=== PATIENT | male | born 1955 | race Caucasian/White ===

== ENCOUNTER 2018-08-24 09:10 | Outpatient (CLI) | payer MEDICARE ==
--- NOTE | 2018-08-24 11:54 | MRI ---
MRI RIGHT SHOULDER WITHOUT CONTRAST: HISTORY: M25.511, right shoulder pain. Prior rotator cuff repair. COMPARISON: None. FINDINGS: BICEPS TENDON: There is an interstitial delamination type tear of the intraarticular biceps tendon. The extraarticular biceps tendon is normal. LABRUM: There is degenerative type fraying of the superior labrum. ROTATOR CUFF: Prior rotator cuff repair. The construct or the supraspinatus is intact with high-gra de tearing at the footprint of the infraspinatus. There is wavy scar and granulation tissue with a 1 .5 cm gap, with only a very small sliver of bursal surface tendon remaining, for a width of 5 mm. MUSCLES: Muscle signal and bulk are normal. 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 Type II acromion. SOFT TISSUES: Moderate subacromial, subdeltoid bursal effusion. IMPRESSION: 1. Interstitial type intraarticular biceps tendon tear. 2. Mild degenerative fraying of the superior and anterior labrum. 3. High-grade near complete tear of the footprint of the anterior fibers of the infraspinatus tendon , posterior to the construct, with a 1.5 cm gap and a small sliver of either scar or granulation tiss ue, most likely intact tendon remaining over the bursal surface. This extends for an anterior-caser in ior width of 5 mm. POS: [facility]
== END 2018-08-24 09:11 | disposition home or self-care (01) ==
LOC: TBSIIMAG 09:10
PROVIDERS: ATTEND Orthopaedic Surgery
DX: M25.511 Pain in right shoulder (principal); S46.911A Strain of unspecified muscle, fascia and tendon at shoulder and upper arm level, right arm, initial encounter; S46.211A Strain of muscle, fascia and tendon of other parts of biceps, right arm, initial encounter; M19.011 Primary osteoarthritis, right shoulder

== ENCOUNTER 2018-09-05 06:39 | Outpatient (CLI) | payer MEDICARE ==
--- NOTE | 2018-09-05 17:23 | EKG ---
Test Reason : Blood Pressure : / mmHG Vent. Rate : 056 BPM Atrial Rate : 056 BPM P-R Int : 162 ms QRS Dur : 090 ms QT Int : 404 ms P-R-T Axes : 036 056 054 degrees QTc Int : 389 ms Sinus bradycardia Anterior infarct , age undetermined Abnormal ECG Confirmed by DR. Moo THURSTON ([id number]) on 09/05/2018 5:22:53 PM Referred By: TRISTAN Confirmed By:DR. Moo THURSTON
== END 2018-09-05 06:40 | disposition home or self-care (01) ==
LOC: LABBT 06:39
PROVIDERS: ATTEND Orthopaedic Surgery
DX: Z01.810 Encounter for preprocedural cardiovascular examination (principal); M75.101 Unspecified rotator cuff tear or rupture of right shoulder, not specified as traumatic
CPT/HCPCS: 93005; 93010

== ENCOUNTER 2018-09-15 05:58 | Day surgery (SDC) | payer MEDICARE ==
[2018-09-05 11:37] VITALS: BMI 41.3
[2018-09-15] MEDS ORDERED: Fentanyl 100 MCG/2 ML VIAL ONE (06:36)
[2018-09-15] MEDS ORDERED: Midazolam HCl 2 mg/2 ml Vial ONE (06:36)
[2018-09-15] MEDS ORDERED: Lidocaine 1% (PF) 30 ML VIAL ONE (06:37)
[2018-09-15] MEDS ORDERED: Clindamycin/D5W 600 mg/50 ml Premix Bag ONE (06:40)
[2018-09-15] MEDS ORDERED: Albuterol Sulfate 2.5 mg/3 ml Neb NEB SCH (07:30)
[2018-09-15] MEDS ORDERED: HYDROcodone/Acetaminophen 10/325 mg Tablet PO PRN ×2 (08:32)
[2018-09-15] MEDS ORDERED: Ondansetron PF 4 MG/2 ML Vial IVP PRN (08:32)
[2018-09-15] MEDS ORDERED: Ropivacaine 0.2% 550 ML 550 ML NERVE BLCK SCH (08:32)
[2018-09-15] MEDS ORDERED: traMADol HCl 50 MG TAB PO PRN ×2 (08:32)
[2018-09-15] MEDS ORDERED: Zolpidem Tartrate 5 MG TAB PO PRN (08:32)
[2018-09-15] MEDS ORDERED: Promethazine HCl 25 MG/ML VIAL IM PRN (08:32)
[2018-09-15] MEDS ORDERED: Fentanyl 100 MCG/2 ML VIAL SLOW IVP PRN (08:33)
[2018-09-15] MEDS ORDERED: Ropivacaine 0.5% HCl/PF (150 MG/30 ML VIAL) ONE (11:41)
[2018-09-15] MEDS ORDERED: Ropivacaine 0.2% HCl/PF (40 MG/20 ML VIAL) ONE (11:41)
[2018-09-15] MEDS ORDERED: Rocuronium Bromide 10 MG/ML (10ML VIAL) ONE (13:29)
[2018-09-15] MEDS ORDERED: Lidocaine 1% PF 5 ML VIAL ONE (13:29)
[2018-09-15] MEDS ORDERED: Glycopyrrolate 0.2 MG/ML 5 ML SYRINGE ONE (13:29)
[2018-09-15] MEDS ORDERED: PROPOFOL 200 MG/20 ML VIAL ONE (13:29)
--- NOTE | 2018-09-16 09:38 | OP ---
DATE OF PROCEDURE: 09/15/2018 PREOPERATIVE DIAGNOSES: Right rotator cuff tear, right biceps tendon split. POSTOPERATIVE DIAGNOSES: Right rotator cuff tear, right biceps tendon split. PROCEDURES PERFORMED: Right arthroscopic subacromial decompression, right arthroscopic biceps tenotomy and right arthroscopic rotator cuff repair. ANESTHESIA: General. ESTIMATED BLOOD LOSS: Minimal. SPECIMEN: None. DRAINS: None. COMPLICATIONS: None. DESCRIPTION OF PROCEDURE: The patient was taken to the operating room, where general anesthesia was induced. The patient was placed in left lateral decubitus position. Right arm was prepped and draped in usual sterile fashion. The scope was placed in the glenohumeral joint. He had an unstable biceps sling and split biceps tendon. I tagged the biceps tendon and transected the superior glenoid tubercle and debrided the surrounding labrum. The biceps tear, however, was very well fixed and did not retract. Scope was placed in the subacromial bursa and performed the bursectomy. CA ligament was taken down. I freshened up the rotator cuff tear. It was just behind rotator cuff tear that was repaired 12 years ago. I placed a single suture to the greater tuberosity. Sutures were passed through the rotator cuff and tied with a good watertight repair. I then attempted to expose the biceps in the bicipital groove; however, the bicipital groove was completely grown over with bone. Therefore, I elected to leave this as a tenotomy instead of a tenodesis. Shoulder was drained. were closed with nylon sutures. Sterile dressings were applied. Job ID: [id number]
== END 2018-09-15 13:08 | disposition home or self-care (01) ==
LOC: SDC 05:58
PROVIDERS: ATTEND Orthopaedic Surgery
PROC: 0LQ14ZZ Repair Right Shoulder Tendon, Percutaneous Endoscopic Approach (ICD-10-PCS; principal; 2018-09-15)
DX: M75.101 Unspecified rotator cuff tear or rupture of right shoulder, not specified as traumatic (principal); I10 Essential (primary) hypertension; K21.9 Gastro-esophageal reflux disease without esophagitis; E78.5 Hyperlipidemia, unspecified; Z85.46 Personal history of malignant neoplasm of prostate; Z85.820 Personal history of malignant melanoma of skin; Z90.49 Acquired absence of other specified parts of digestive tract; Z88.0 Allergy status to penicillin; Z91.09 Other allergy status, other than to drugs and biological substances; Z79.82 Long term (current) use of aspirin; Z79.51 Long term (current) use of inhaled steroids; Z79.899 Other long term (current) drug therapy; Z98.890 Other specified postprocedural states
CPT/HCPCS: 29827; 97139; A4306; J2001; J2250; J2704; J2795; J3010; J3490; J7620

== ENCOUNTER 2021-08-08 14:13 | Outpatient (CLI) | payer MEDICARE ==
[2021-08-08 15:55] LABS: Hemoglobin 15.1 g/dL (13.5-17.5); Mean Corpuscular HGB CONC 32.2 g/dL (32.0-36.0); Mean Corpuscular Volume 90.2 fl (81.2-95.1); Mean Platelet Volume 10.4 fl (7.4-10.4); Platelet Count 244 10x3/uL (150-450); RBC Distribution Width 14.4 % (11.5-14.5); White Blood Cell (WBC) Count 6.7 10x3/uL (3.5-10.5)
[2021-08-08 16:06] LABS: Bilirubin Neg (Negative); Blood, Urine Negative (Negative); Clarity Clear (Clear); Glucose, Urine (Dipstick) Normal (Negative); Ketone, Urine Negative (Negative); Leukocyte Negative (Negative); Nitrite Negative (Negative); Protein, Urine (Dipstick) Negative (Neg-Trace); Urobilinogen Normal mg/dL (Less than 2)
[2021-08-08 16:25] LABS: INR-International Normal Ratio 1.1; PTT 26.5 sec (22.0-33.0); Prothrombin Time 11.8 sec (9.5-12.1)
[2021-08-08 16:28] LABS: Anion Gap 15 mmol/L (10-20); BUN (Urea Nitrogen) 21 mg/dL (8.4-25.7); Calc. Creatinine Clearance 0 mL/min (70-130); Calcium 8.9 mg/dL (7.8-10.44); Carbon Dioxide 27 mmol/L (23-31); Chloride 103 mmol/L (98-107); Glucose 157 mg/dL (80-115); Potassium 3.7 mmol/L (3.5-5.1); Sodium 141 mmol/L (136-145)
[2021-08-08 16:29] LABS: Bacteria/HPF None Seen HPF (None Seen); RBC/HPF 0-3 HPF (0-3); Squamous Epithelial 0-3 HPF (0-3); WBC/HPF 0-3 HPF (0-3)
[2021-08-09 18:11] LABS: SARS-CoV-2 PCR by NAA Not Detected (NotDetected)
== END 2021-08-08 14:14 | disposition home or self-care (01) ==
LOC: LABBT 14:13
PROVIDERS: ATTEND Urology
DX: Z01.818 Encounter for other preprocedural examination (principal); Z20.822 Contact with and (suspected) exposure to COVID-19
CPT/HCPCS: 80048; 81001; 85027; 85610; 85730; 87086; U0003; U0005; 93005; 93010

== ENCOUNTER 2021-08-13 06:29 | Day surgery (SDC) | payer MEDICARE ==
[2021-08-12 10:39] VITALS: BMI 42.8
[2021-08-13] MEDS ORDERED: Levofloxacin 500 mg/D5W 100 ml Premix Bag ONE (08:00)
[2021-08-13] MEDS ORDERED: Iothalamate Meglumine 60% 50 ML VIAL FS ONE ×2 (09:44→09:57)
[2021-08-13] MEDS ORDERED: Fentanyl 100 MCG/2 ML VIAL ONE (09:58)
[2021-08-13] MEDS ORDERED: PROPOFOL 200 MG/20 ML VIAL ONE (10:14)
[2021-08-13] MEDS ORDERED: Lidocaine 1% PF 5 ML VIAL ONE (10:14)
[2021-08-13] MEDS ORDERED: Ondansetron PF 4 MG/2 ML Vial ONE (10:14)
[2021-08-13] MEDS ORDERED: Phenazopyridine HCl 100 MG TAB ONE (11:24)
[2021-08-13] MEDS ORDERED: Oxybutynin 5 MG TAB ONE (11:24)
[2021-08-13] MEDS ORDERED: HYDROcodone/Acetaminophen 5/325 mg Tablet ONE (12:49)
== END 2021-08-13 14:15 | disposition home or self-care (01) ==
LOC: SDC 06:29
PROVIDERS: ATTEND Urology
PROC: 0TJB8ZZ Inspection of Bladder, Via Natural or Artificial Opening Endoscopic (ICD-10-PCS; principal; 2021-08-13)
DX: N35.919 Unspecified urethral stricture, male, unspecified site (principal); N40.0 Benign prostatic hyperplasia without lower urinary tract symptoms; R31.0 Gross hematuria; R36.0 Urethral discharge without blood; N28.1 Cyst of kidney, acquired; E78.5 Hyperlipidemia, unspecified; I10 Essential (primary) hypertension; K21.9 Gastro-esophageal reflux disease without esophagitis; M19.90 Unspecified osteoarthritis, unspecified site; G89.29 Other chronic pain; M54.9 Dorsalgia, unspecified; K42.9 Umbilical hernia without obstruction or gangrene; E66.01 Morbid (severe) obesity due to excess calories; Z68.41 Body mass index [BMI] 40.0-44.9, adult; Z85.46 Personal history of malignant neoplasm of prostate; Z87.891 Personal history of nicotine dependence; Z79.82 Long term (current) use of aspirin; Z79.899 Other long term (current) drug therapy; Z88.0 Allergy status to penicillin; Z91.040 Latex allergy status; Z91.048 Other nonmedicinal substance allergy status
CPT/HCPCS: 52000; 74420; Q9961; J1956; J2405; J2704; J3010

== ENCOUNTER 2022-05-08 15:56 | Inpatient (IN) | payer MEDICARE ==
[~2022-05-08 15:56] MED LIST: Iopamidol-370 76% 500 ML 1 ML ONE
[2022-05-08 16:45] LABS: Bilirubin Negative (Negative); Blood, Urine Negative (Negative); Clarity Clear (Clear); Glucose, Urine (Dipstick) Normal (Negative); Ketone, Urine Negative (Negative); Leukocyte Negative Leu/uL (Negative); Nitrite Negative (Negative); Protein, Urine (Dipstick) Negative (Neg-Trace); Specific Gravity, Urine 1.006 (1.002-1.036); Urobilinogen Normal mg/dL (Less than 2)
[2022-05-08 16:53] LABS: #Eosinphils 0.4 thou/uL (0.0-0.7); #Lymphocytes 1.4 thou/uL (1.20-3.40); #Monocytes 0.7 thou/uL (0.11-0.59); #Neutrophils 5.3 thou/uL (1.40-6.50); %Basophils 0.6 % (0.0-1.0); %Eosinophils 4.6 % (0.0-10.0); %Lymphocytes 17.7 % (21.0-51.0); %Monocytes 9.5 % (0.0-10.0); %Neutrophils 67.6 % (42.0-75.0); Hemoglobin 14.7 g/dL (14.0-18.0); Mean Corpuscular HGB CONC 32.6 g/dL (32.0-36.0); Mean Corpuscular Hemoglobin 31.5 pg (27.0-31.0); Mean Corpuscular Volume 96.7 fL (78.0-98.0); Mean Platelet Volume 7.9 fL (7.4-10.4); Platelet Count 227 thou/uL (130-400); RBC Distribution Width 12.9 % (11.5-14.5); Red Blood Cell (RBC) Count 4.66 mill/uL (4.70-6.10); White Blood Cell (WBC) Count 7.8 thou/uL (4.8-10.8)
[2022-05-08 17:09] LABS: ALT (SGPT) 78 U/L (8-55); AST (SGOT) 43 U/L (5-34); Alkaline Phosphatase 124 U/L (40-110); Anion Gap 17 mmol/L (10-20); BUN (Urea Nitrogen) 14 mg/dL (8.4-25.7); Bilirubin, Total 1.1 mg/dL (0.2-1.2); Calc. Creatinine Clearance 0 mL/min (70-130); Carbon Dioxide 30 mmol/L (23-31); Chloride 99 mmol/L (98-107); Estimated GFR 62; Glucose 108 mg/dL (80-115); Potassium 3.7 mmol/L (3.5-5.1); Sodium 142 mmol/L (136-145)
[2022-05-08] MEDS ORDERED: Furosemide 40 MG/4 ML VIAL ONE (17:10)
[2022-05-08] MEDS ORDERED: Furosemide 20 MG/2 ML VIAL ONE (17:10)
[2022-05-08] MEDS ORDERED: Acetaminophen 325 MG TAB PO PRN (20:22)
[2022-05-08] MEDS ORDERED: Ondansetron PF 4 MG/2 ML Vial IVP PRN (20:22)
[2022-05-08] MEDS ORDERED: Lorazepam 1 MG TAB PO PRN (21:16)
[2022-05-08] MEDS ORDERED: Ondansetron ODT 4 MG TAB PO PRN (21:16)
[2022-05-08] MEDS ORDERED: Lorazepam 2 MG/ML VIAL IM PRN (21:16)
[2022-05-08] MEDS ORDERED: Electrolyte Replacement Protocol 1 EACH FS PRN (21:30)
[2022-05-08 21:35] LABS: Troponin I 0.019 ng/mL (< 0.028)
[2022-05-08 22:18] LABS: SARS-CoV-2 NAA Rapid Test Not Detected (NotDetected)
[2022-05-08 22:22] VITALS: BMI 44.3
[2022-05-08] MEDS: Lorazepam 1 MG TAB PO SCH (22:50)
[2022-05-08 23:27] LABS: Bilirubin, Direct 0.6 mg/dL (0.1-0.3); Magnesium 1.8 mg/dL (1.6-2.6); Phosphorus 3.5 mg/dL (2.3-4.7)
[2022-05-08] MEDS ORDERED: Aspirin 81 mg Enteric Coated Tablet PO SCH (23:30)
[2022-05-08] MEDS ORDERED: Carvedilol 25 MG TAB PO SCH (23:30)
[2022-05-08] MEDS ORDERED: Atorvastatin Calcium 40 MG TAB PO SCH (23:30)
[2022-05-08] MEDS ORDERED: Tamsulosin HCl 0.4 MG CAP PO SCH (23:30)
[2022-05-08] MEDS ORDERED: Magnesium 2 GM/50 ML(in water) 2 GM in Premix Bag 1 BAG IVPB SCH (23:45)
[2022-05-09] MEDS: Lorazepam 1 MG TAB PO SCH ×2 (05:00→10:09)
[2022-05-09 06:37] LABS: #Basophils 0.1 thou/uL (0.0-0.2); #Eosinphils 0.4 thou/uL (0.0-0.7); #Lymphocytes 1.1 thou/uL (1.20-3.40); #Monocytes 0.8 thou/uL (0.11-0.59); #Neutrophils 3.9 thou/uL (1.40-6.50); %Eosinophils 5.9 % (0.0-10.0); %Lymphocytes 17.9 % (21.0-51.0); %Monocytes 12.4 % (0.0-10.0); %Neutrophils 62.9 % (42.0-75.0); Hemoglobin 14.6 g/dL (14.0-18.0); Mean Corpuscular HGB CONC 31.6 g/dL (32.0-36.0); Mean Corpuscular Hemoglobin 30.7 pg (27.0-31.0); Mean Corpuscular Volume 97.2 fL (78.0-98.0); Mean Platelet Volume 7.9 fL (7.4-10.4); Platelet Count 194 thou/uL (130-400); Red Blood Cell (RBC) Count 4.74 mill/uL (4.70-6.10); White Blood Cell (WBC) Count 6.2 thou/uL (4.8-10.8)
[2022-05-09 06:52] LABS: Magnesium 2.2 mg/dL (1.6-2.6)
[2022-05-09 06:53] LABS: ALT (SGPT) 78 U/L (8-55); AST (SGOT) 56 U/L (5-34); Albumin 3.8 g/dL (3.4-4.8); Alkaline Phosphatase 116 U/L (40-110); Anion Gap 14 mmol/L (10-20); BUN (Urea Nitrogen) 14 mg/dL (8.4-25.7); Bilirubin, Total 1.3 mg/dL (0.2-1.2); Calc. Creatinine Clearance 116 mL/min (70-130); Calcium 8.4 mg/dL (7.8-10.44); Carbon Dioxide 35 mmol/L (23-31); Chloride 97 mmol/L (98-107); Estimated GFR 64; Globulin 2.6 g/dL (2.4-3.5); Glucose 125 mg/dL (80-115); Potassium 3.7 mmol/L (3.5-5.1); Protein, Total 6.4 g/dL (5.8-8.1); Sodium 142 mmol/L (136-145)
[2022-05-09] MEDS ORDERED: Multivit, Therapeutic 1 TAB PO SCH (09:00)
[2022-05-09] MEDS ORDERED: Furosemide 40 MG TAB PO SCH (09:00)
[2022-05-09] MEDS ORDERED: Enoxaparin Sodium 30 MG/0.3 ML SYRINGE SC SCH (09:00)
[2022-05-09] MEDS: Ascorbic Acid 500 mg Chewable Tablet PO SCH (10:08)
[2022-05-09] MEDS: Folic Acid 1 MG TAB PO SCH (10:10)
[2022-05-09] MEDS: Fish Oil 1,000 MG CAP PO SCH (10:10)
[2022-05-09] MEDS: Carvedilol 25 MG TAB PO SCH ×2 (10:10→21:13)
[2022-05-09] MEDS: Zinc Sulfate 220 MG CAP PO SCH (10:10)
[2022-05-09] MEDS: Multivit, Therapeutic 1 TAB PO SCH (10:11)
[2022-05-09] MEDS: Cholecalciferol 1,000 UNITS (25 MCG) TAB PO SCH (10:11)
[2022-05-09] MEDS: FLUoxetine HCl 20 MG CAP PO SCH (10:12)
[2022-05-09] MEDS: Amlodipine 5 MG TAB PO SCH (10:12)
[2022-05-09] MEDS: Calcium Carbonate 500 MG ChewTAB PO SCH (10:13)
[2022-05-09] MEDS: Losartan 25 MG TAB PO SCH (10:13)
[2022-05-09 10:42] LABS: Actual Bicarbonate (HCO3a) 33.8 mEq/L (22-28); Base Excess (BEa) 5.9 mEq/L (-2.0 to +3.0); CO2 Tension 61.9 mmHg (35.0-45.0); Calcium, Ionized (arterial) 1.15 mmol/L (1.12-1.30); Carboxyhemoglobin (COHb) 1.1 gm% (0.0-3.0); Hemoglobin (Hb) 16.2 g/dL (14.0-18.0); O2 Tension (PaO2), arterial 59.5 mmHg (> 80.0); Potassium - ABG Lab 3.85 mmol/L (3.70-5.30); Puncture Site LRA; pH, Arterial 7.36 (7.35-7.45)
[2022-05-09 11:12] LABS: INR-International Normal Ratio 1.1; Prothrombin Time 14.6 sec (12.0-14.7)
[2022-05-09 11:13] LABS: PTT 33.2 sec (22.9-36.1)
[2022-05-09] MEDS ORDERED: hydrALAZINE 20 MG/ML VIAL SLOW IVP PRN (11:38)
[2022-05-09] MEDS ORDERED: Loperamide HCl 2 MG CAP PO PRN ×2 (11:38)
[2022-05-09] MEDS ORDERED: Loratadine 10 MG TAB PO PRN (11:38)
[2022-05-09] MEDS ORDERED: Benzonatate 100 MG CAP PO PRN (11:38)
[2022-05-09] MEDS ORDERED: Artificial Tear Sol 15 ML BOT EA EYE PRN (11:38)
[2022-05-09] MEDS ORDERED: Moisturizing Cream (Eucerin) 113 GM JAR TOP PRN (11:38)
[2022-05-09] MEDS ORDERED: Sodium Chloride 0.65% Nasal 44 ML BOT EA NARE PRN (11:38)
[2022-05-09] MEDS ORDERED: Labetalol HCl 100 MG/20 ML VIAL SLOW IVP PRN (11:38)
[2022-05-09 12:30] LABS: Syphilis Antibody Nonreactive (Nonreactive); Syphilis Antibody Index 0.06 S/CO (<1.00 Non-Reactive)
[2022-05-09] MEDS: Azithromycin 500 MG in Sodium Chloride 0.9% 250 ML 250 ML IVPB SCH (17:52)
[2022-05-09] MEDS ORDERED: Tamsulosin HCl 0.4 MG CAP PO SCH (21:00)
[2022-05-09] MEDS: Atorvastatin Calcium 20 MG TAB PO SCH (21:13)
[2022-05-09] MEDS: traZODone HCl 150 MG TAB PO SCH (21:13)
[2022-05-09] MEDS: Aspirin Chewable 81 MG TAB PO SCH (21:13)
[2022-05-09] MEDS ORDERED: Lorazepam 1 MG TAB PO PRN (21:16)
[2022-05-10 04:40] LABS: Base Excess 8.8 mEq/L (-2.0 to +3.0); Calcium, Ionized (venous) 1.07 mmol/L (1.16-1.32); Chloride (VBG) 99 mmol/L (98-106); Hemoglobin (Hb) 15.4 g/dL (12.6-17.4); Sodium 142.5 mmol/L (133-146); pH (venous) 7.37 (7.32-7.43)
[2022-05-10 04:43] LABS: Actual Bicarbonate (HCO3v) 37 mEq/L (22-28)
[2022-05-10] MEDS: Zinc Sulfate 220 MG CAP PO SCH (08:59)
[2022-05-10] MEDS: Furosemide 40 MG/4 ML VIAL SLOW IVP SCH (08:59)
[2022-05-10] MEDS: Enoxaparin Sodium 40 MG/0.4 ML SYRINGE SC SCH (08:59)
[2022-05-10] MEDS: FLUoxetine HCl 20 MG CAP PO SCH (09:00)
[2022-05-10] MEDS: Fish Oil 1,000 MG CAP PO SCH (09:00)
[2022-05-10] MEDS: Acetaminophen 500 MG TAB PO PRN (09:00)
[2022-05-10] MEDS: Folic Acid 1 MG TAB PO SCH (09:00)
[2022-05-10] MEDS: Cholecalciferol 1,000 UNITS (25 MCG) TAB PO SCH (09:00)
[2022-05-10] MEDS: Ascorbic Acid 500 mg Chewable Tablet PO SCH (09:01)
[2022-05-10] MEDS: Losartan 25 MG TAB PO SCH (09:01)
[2022-05-10] MEDS: Carvedilol 25 MG TAB PO SCH ×2 (09:01→20:52)
[2022-05-10] MEDS: Multivit, Therapeutic 1 TAB PO SCH (09:01)
[2022-05-10] MEDS: Amlodipine 5 MG TAB PO SCH (09:01)
[2022-05-10] MEDS: Calcium Carbonate 500 MG ChewTAB PO SCH (09:02)
[2022-05-10] MEDS: Azithromycin 500 MG in Sodium Chloride 0.9% 250 ML 250 ML IVPB SCH (17:07)
[2022-05-10] MEDS: Mometasone/Formoterol 200/5 60 PUFF INH SCH (19:22)
[2022-05-10] MEDS: Aspirin Chewable 81 MG TAB PO SCH (20:52)
[2022-05-10] MEDS: traZODone HCl 150 MG TAB PO SCH (20:52)
[2022-05-10] MEDS: Atorvastatin Calcium 20 MG TAB PO SCH (20:53)
[2022-05-10] MEDS: ALPRAZolam 0.5 MG TAB PO PRN ×2 (21:03→22:33)
[2022-05-10] MEDS: Tamsulosin HCl 0.4 MG CAP PO SCH (21:10)
[2022-05-10] MEDS ORDERED: Lorazepam 1 MG TAB PO PRN (21:16)
[2022-05-10] MEDS ORDERED: Lorazepam 0.5 MG TAB PO SCH (21:30)
[2022-05-11] MEDS: Mometasone/Formoterol 200/5 60 PUFF INH SCH ×2 (06:33→18:57)
[2022-05-11] MEDS: Amlodipine 5 MG TAB PO SCH (08:45)
[2022-05-11] MEDS: Ascorbic Acid 500 mg Chewable Tablet PO SCH (08:45)
[2022-05-11] MEDS: Enoxaparin Sodium 40 MG/0.4 ML SYRINGE SC SCH (08:46)
[2022-05-11] MEDS: Fish Oil 1,000 MG CAP PO SCH (08:46)
[2022-05-11] MEDS: Carvedilol 25 MG TAB PO SCH ×2 (08:46→20:48)
[2022-05-11] MEDS: Calcium Carbonate 500 MG ChewTAB PO SCH (08:46)
[2022-05-11] MEDS: Cholecalciferol 1,000 UNITS (25 MCG) TAB PO SCH (08:46)
[2022-05-11] MEDS: FLUoxetine HCl 20 MG CAP PO SCH (08:47)
[2022-05-11] MEDS: Zinc Sulfate 220 MG CAP PO SCH (08:47)
[2022-05-11] MEDS: Losartan 25 MG TAB PO SCH (08:47)
[2022-05-11] MEDS: Multivit, Therapeutic 1 TAB PO SCH (08:47)
[2022-05-11] MEDS: Folic Acid 1 MG TAB PO SCH (08:47)
[2022-05-11] MEDS: Furosemide 40 MG/4 ML VIAL SLOW IVP SCH (08:48)
[2022-05-11] MEDS: Azithromycin 500 MG in Sodium Chloride 0.9% 250 ML 250 ML IVPB SCH (16:28)
[2022-05-11] MEDS: Atorvastatin Calcium 20 MG TAB PO SCH (20:47)
[2022-05-11] MEDS: Aspirin Chewable 81 MG TAB PO SCH (20:47)
[2022-05-11] MEDS: traZODone HCl 150 MG TAB PO SCH (20:47)
[2022-05-11] MEDS: Tamsulosin HCl 0.4 MG CAP PO SCH (20:47)
[2022-05-11] MEDS: Thiamine 100 MG TAB PO SCH (20:59)
[2022-05-11] MEDS ORDERED: Lorazepam 0.5 MG TAB PO PRN (21:16)
[2022-05-11] MEDS: ALPRAZolam 0.5 MG TAB PO PRN (22:23)
[2022-05-12] MEDS: Mometasone/Formoterol 200/5 60 PUFF INH SCH ×2 (08:04→19:06)
[2022-05-12] MEDS: Calcium Carbonate 500 MG ChewTAB PO SCH (09:00)
[2022-05-12] MEDS: Zinc Sulfate 220 MG CAP PO SCH (09:00)
[2022-05-12] MEDS: Carvedilol 25 MG TAB PO SCH ×2 (09:00→21:20)
[2022-05-12] MEDS: Amlodipine 5 MG TAB PO SCH (09:00)
[2022-05-12] MEDS: Ascorbic Acid 500 mg Chewable Tablet PO SCH (09:00)
[2022-05-12] MEDS: Cholecalciferol 1,000 UNITS (25 MCG) TAB PO SCH (09:00)
[2022-05-12] MEDS: Enoxaparin Sodium 40 MG/0.4 ML SYRINGE SC SCH (09:00)
[2022-05-12] MEDS: Folic Acid 1 MG TAB PO SCH (09:01)
[2022-05-12] MEDS: FLUoxetine HCl 20 MG CAP PO SCH (09:01)
[2022-05-12] MEDS: Fish Oil 1,000 MG CAP PO SCH (09:01)
[2022-05-12] MEDS: Furosemide 40 MG/4 ML VIAL SLOW IVP SCH (09:02)
[2022-05-12] MEDS: Losartan 25 MG TAB PO SCH (09:02)
[2022-05-12] MEDS: Multivit, Therapeutic 1 TAB PO SCH (09:02)
[2022-05-12] MEDS: Azithromycin 500 MG in Sodium Chloride 0.9% 250 ML 250 ML IVPB SCH (16:46)
[2022-05-12] MEDS: Aspirin Chewable 81 MG TAB PO SCH (21:20)
[2022-05-12] MEDS: Atorvastatin Calcium 20 MG TAB PO SCH (21:20)
[2022-05-12] MEDS: Tamsulosin HCl 0.4 MG CAP PO SCH (21:20)
[2022-05-12] MEDS: traZODone HCl 150 MG TAB PO SCH (21:21)
[2022-05-12] MEDS: ALPRAZolam 0.5 MG TAB PO PRN (21:21)
[2022-05-12] MEDS: Thiamine 100 MG TAB PO SCH (21:21)
[2022-05-13 05:47] LABS: Anion Gap 14 mmol/L (10-20); BUN (Urea Nitrogen) 16 mg/dL (8.4-25.7); Calc. Creatinine Clearance 126 mL/min (70-130); Calcium 8.8 mg/dL (7.8-10.44); Carbon Dioxide 32 mmol/L (23-31); Chloride 99 mmol/L (98-107); Estimated GFR 72; Glucose 112 mg/dL (80-115); Potassium 3.7 mmol/L (3.5-5.1); Sodium 141 mmol/L (136-145)
[2022-05-13] MEDS: Mometasone/Formoterol 200/5 60 PUFF INH SCH ×2 (06:25→18:32)
[2022-05-13] MEDS: Enoxaparin Sodium 40 MG/0.4 ML SYRINGE SC SCH (08:01)
[2022-05-13] MEDS: FLUoxetine HCl 20 MG CAP PO SCH (08:02)
[2022-05-13] MEDS: Losartan 25 MG TAB PO SCH (08:03)
[2022-05-13] MEDS: Zinc Sulfate 220 MG CAP PO SCH (08:03)
[2022-05-13] MEDS: Folic Acid 1 MG TAB PO SCH (08:03)
[2022-05-13] MEDS: Ascorbic Acid 500 mg Chewable Tablet PO SCH (08:03)
[2022-05-13] MEDS: Carvedilol 25 MG TAB PO SCH ×2 (08:03→21:32)
[2022-05-13] MEDS: Multivit, Therapeutic 1 TAB PO SCH (08:03)
[2022-05-13] MEDS: Fish Oil 1,000 MG CAP PO SCH (08:04)
[2022-05-13] MEDS: Calcium Carbonate 500 MG ChewTAB PO SCH (08:04)
[2022-05-13] MEDS: Amlodipine 5 MG TAB PO SCH (08:04)
[2022-05-13] MEDS: Furosemide 40 MG TAB PO SCH (08:04)
[2022-05-13] MEDS: Cholecalciferol 1,000 UNITS (25 MCG) TAB PO SCH (08:04)
[2022-05-13] MEDS: Azithromycin 500 MG in Sodium Chloride 0.9% 250 ML 250 ML IVPB SCH ×2 (17:33→18:11)
[2022-05-13] MEDS: Tamsulosin HCl 0.4 MG CAP PO SCH (21:32)
[2022-05-13] MEDS: Atorvastatin Calcium 20 MG TAB PO SCH (21:32)
[2022-05-13] MEDS: Thiamine 100 MG TAB PO SCH (21:32)
[2022-05-13] MEDS: Aspirin Chewable 81 MG TAB PO SCH (21:32)
[2022-05-13] MEDS: diphenhydrAMINE 25 MG CAP PO PRN (21:32)
[2022-05-13] MEDS: traZODone HCl 150 MG TAB PO SCH (21:32)
[2022-05-13] MEDS: ALPRAZolam 0.5 MG TAB PO PRN (22:22)
[2022-05-14 05:38] LABS: Anion Gap 14 mmol/L (10-20); BUN (Urea Nitrogen) 17 mg/dL (8.4-25.7); Calc. Creatinine Clearance 130 mL/min (70-130); Calcium 8.7 mg/dL (7.8-10.44); Carbon Dioxide 29 mmol/L (23-31); Chloride 100 mmol/L (98-107); Estimated GFR 75; Glucose 105 mg/dL (80-115); Potassium 3.8 mmol/L (3.5-5.1); Sodium 139 mmol/L (136-145)
[2022-05-14 07:58] VITALS: TEMP 97.4
[2022-05-14] MEDS: Mometasone/Formoterol 200/5 60 PUFF INH SCH (08:03)
[2022-05-14] MEDS: Furosemide 40 MG TAB PO SCH (09:24)
[2022-05-14] MEDS: Calcium Carbonate 500 MG ChewTAB PO SCH (09:24)
[2022-05-14] MEDS: Amlodipine 5 MG TAB PO SCH (09:24)
[2022-05-14] MEDS: Ascorbic Acid 500 mg Chewable Tablet PO SCH (09:24)
[2022-05-14] MEDS: Carvedilol 25 MG TAB PO SCH (09:25)
[2022-05-14] MEDS: Folic Acid 1 MG TAB PO SCH (09:25)
[2022-05-14] MEDS: Enoxaparin Sodium 40 MG/0.4 ML SYRINGE SC SCH (09:25)
[2022-05-14] MEDS: FLUoxetine HCl 20 MG CAP PO SCH (09:25)
[2022-05-14] MEDS: Fish Oil 1,000 MG CAP PO SCH (09:25)
[2022-05-14] MEDS: Cholecalciferol 1,000 UNITS (25 MCG) TAB PO SCH (09:25)
[2022-05-14] MEDS: Zinc Sulfate 220 MG CAP PO SCH (09:26)
[2022-05-14] MEDS: Losartan 25 MG TAB PO SCH (09:26)
[2022-05-14] MEDS: Multivit, Therapeutic 1 TAB PO SCH (09:26)
[2022-05-14] MEDS: Acetaminophen 500 MG TAB PO PRN (09:31)
[2022-05-14] MEDS: diphenhydrAMINE 25 MG CAP PO PRN (09:31)
[2022-05-14 11:48] VITALS: BP 123/67
== END 2022-05-14 16:02 | disposition home or self-care (01) | DRG 205 ==
LOC: ERS 15:56 → 2SW 20:22 → OBSVTOIN 05-09 10:03
PROVIDERS: ADMIT Hospitalist; ATTEND Hospitalist
PROC: 5A09357 Assistance with Respiratory Ventilation, Less than 24 Consecutive Hours, Continuous Positive Airway Pressure (ICD-10-PCS; principal; 2022-05-08)
PROC: HZ2ZZZZ Detoxification Services for Substance Abuse Treatment (ICD-10-PCS; 2022-05-08)
DX: E66.2 Morbid (severe) obesity with alveolar hypoventilation (principal); I50.33 Acute on chronic diastolic (congestive) heart failure; J96.21 Acute and chronic respiratory failure with hypoxia; J96.22 Acute and chronic respiratory failure with hypercapnia; Z68.41 Body mass index [BMI] 40.0-44.9, adult; E87.4 Mixed disorder of acid-base balance; Z20.822 Contact with and (suspected) exposure to COVID-19; F10.10 Alcohol abuse, uncomplicated; I11.0 Hypertensive heart disease with heart failure; E78.5 Hyperlipidemia, unspecified; R74.01 Elevation of levels of liver transaminase levels; T51.0X1A Toxic effect of ethanol, accidental (unintentional), initial encounter; K70.0 Alcoholic fatty liver; N40.0 Benign prostatic hyperplasia without lower urinary tract symptoms; Z91.040 Latex allergy status; Z88.0 Allergy status to penicillin; Z91.09 Other allergy status, other than to drugs and biological substances; Z79.899 Other long term (current) drug therapy; Z79.82 Long term (current) use of aspirin; Z79.51 Long term (current) use of inhaled steroids; Z98.890 Other specified postprocedural states; Z82.49 Family history of ischemic heart disease and other diseases of the circulatory system
CPT/HCPCS: 36415; 36600; 71045; 71275; 76705; 80048; 80053; 81003; 82248; 82805; 83735; 83880; 84100; 84484; 85025; 85610; 85730; 86780; 87070; 87205; 89220; 93005; 93306; 94640; 94660; 94664; 94760; 96374; 96375; G0378; J0456; J1650; J1940; J3475; J7050; J7620; Q9967; U0002